=== PATIENT | male | born 1985 | race Two or more races ===

== ENCOUNTER 2021-07-10 19:35 | Emergency (ER) | payer OTHER ==
[~2021-07-10] VITALS: Ht 165.1 cm; Wt 77.1 kg
--- NOTE | 2021-07-10 20:02 | NUR ---
SEND COVID SWAB TO LAB
--- NOTE | 2021-07-10 21:07 | NUR ---
Patient discharged to [facility] in stable condition. Written and verbal after care instructions given. Patient verbalizes understanding of instruction.
[2021-07-10 21:08] VITALS: BP 112/78
== END 2021-07-10 21:07 ==
LOC: ER 19:37
DX: J06.9 Acute upper respiratory infection, unspecified (principal); Z20.822 Contact with and (suspected) exposure to COVID-19; R73.03 Prediabetes
CPT/HCPCS: 87426; 99283; C9803